=== PATIENT | female | born 1970 | race Asian ===

== ENCOUNTER 2024-08-29 20:36 | Emergency (ER) | payer MEDICAID ==
[~2024-08-29] VITALS: Ht 162.6 cm; Wt 51.0 kg
[2024-08-29 22:18] LABS: BASOPHILS % (AUTO) 0.8 % (0.0-2.0); EOSINOPHILS % (AUTO) 3.3 % (1.0-6.0); HEMATOCRIT 28.7 % (36-46); HEMOGLOBIN 8.9 g/dL (12.0-16.0); LYMPHOCYTES # (AUTO) 0.8 K/uL (1.0-4.8); LYMPHOCYTES % (AUTO) 16.5 % (22.0-44.0); MEAN CORPUSCULAR HEMOGLOBIN 30.1 pg (26.0-34.0); MEAN CORPUSCULAR HGB CONC 31.1 G/dL (31.0-37.0); MEAN CORPUSCULAR VOLUME 97 fL (80-100); MONOCYTES # (AUTO) 0.3 K/uL (0.1-1.0); MONOCYTES % (AUTO) 6.3 % (2.0-9.0); NEUTROPHILS # (AUTO) 3.4 K/uL (1.8-7.7); NEUTROPHILS % (AUTO) 73.1 % (40.0-70.0); PLATELET COUNT (AUTO) 182 K/uL (150-450); RED BLOOD CELL COUNT(AUTO) 2.96 MIL/uL (4.00-5.20); RED CELL DISTRIBUTION WIDTH 22.7 % (11.5-14.5); WHITE BLOOD COUNT (AUTO) 4.6 K/uL (4.5-11.0)
[2024-08-29 22:27] LABS: ANION GAP 8 mmol/L (8-16); CALCIUM, TOTAL 7.7 mg/dL (8.8-10.5); CARBON DIOXIDE 25 mmol/L (22-29); CHLORIDE 110 mmol/L (98-107); CREATININE 0.59 mg/dL (0.60-1.30); GLOMERULAR FILTR. RATE CALC > 60 mL/min (>60); GLUCOSE,RANDOM 111 mg/dL (70-110); POTASSIUM 3.6 mmol/L (3.5-5.1); SODIUM SERUM 143 mmol/L (136-145); UREA NITROGEN, BLOOD 17 mg/dL (7-18)
[2024-08-29 22:37] LABS: ALANINE AMINOTRANSFERASE 18 U/L (12-78); ALBUMIN 2.9 g/dL (3.4-5.0); ALKALINE PHOSPHATASE 60 U/L (46-116); ASPARTATE AMINOTRANSFERASE 14 U/L (15-37); BILIRUBIN,TOTAL 0.2 mg/dL (0.1-1.0); TOTAL PROTEIN, SERUM 5.6 g/dL (6.4-8.2); TROPONIN I-HIGH SENSITIVITY 4 ng/L (<51)
[2024-08-29 22:58] LABS: RBC MORPHOLOGY COMMENT ABNORMAL RBC MORPH
[2024-08-29] MEDS: TRANEXAMIC ACID IV ONE (23:30)
[2024-08-29] MEDS: WATER IV ONE (23:30)
[2024-08-29] MEDS: DEXTROSE 5% IV ONE (23:30)
[2024-08-30 01:00] VITALS: TEMP 97.3
[2024-08-30 03:12] VITALS: BP 119/65; PULSE 65; RESP 16; O2SAT 100
== END 2024-08-30 05:23 | disposition home or self-care (01) ==
LOC: EMS 20:36
DX: N93.9 Abnormal uterine and vaginal bleeding, unspecified (principal); Z59.01 Sheltered homelessness
CPT/HCPCS: 99284; 96365; 80048; 80076; 84484; 85025; 36415; 93005; J7060; J3490

== ENCOUNTER 2025-05-21 04:47 | Emergency (ER) | payer MEDICAID ==
[~2025-05-21] VITALS: Ht 157.5 cm; Wt 52.3 kg
[2025-05-21 05:02] VITALS: TEMP 97.5
[2025-05-21 05:28] LABS: PLATELET COUNT (AUTO) 160 K/uL (150-450); RED BLOOD CELL COUNT(AUTO) 3.93 MIL/uL (4.00-5.20); RED CELL DISTRIBUTION WIDTH 17.2 % (11.5-14.5); WHITE BLOOD COUNT (AUTO) 5.1 K/uL (4.5-11.0)
[2025-05-21 05:36] LABS: CALCIUM, TOTAL 8.1 mg/dL (8.8-10.5); CREATININE 0.44 mg/dL (0.60-1.30); GLOMERULAR FILTR. RATE CALC > 60 mL/min (>60); GLUCOSE,RANDOM 100 mg/dL (70-110); SODIUM SERUM 139 mmol/L (136-145); UREA NITROGEN, BLOOD 10 mg/dL (7-18)
[2025-05-21] MEDS ORDERED: LORazepam 2 MG/ML VIAL ONE (07:35)
[2025-05-21] MEDS: TRANEXAMIC ACID 1,000 MG in DEXTROSE 5%-WATER 50 ML IV ONE (08:45)
[2025-05-21] MEDS ORDERED: CEPHALEXIN MONOHYDRATE 500 MG CAPSULE PO ONE (08:45)
[2025-05-21] MEDS: LORazepam 2 MG/ML VIAL IM ONE ×2 (08:46→08:47)
[2025-05-21] MEDS: ZIPRASIDONE MESYLATE 20 MG/VIAL IM ONE (08:47)
[2025-05-21] MEDS: CefTRIAXone 1 GM/DEXTROSE 50 ML IV ONE (09:56)
[2025-05-21 10:13] LABS: APPEARANCE,URINE CLEAR (CLEAR); GLUCOSE, URINE (UA) NEGATIVE (NEGATIVE); LEUKOCYTE ESTERASE ,URINE NEGATIVE (NEGATIVE); NITRATE,URINE NEGATIVE (NEGATIVE); OCCULT BLOOD,URINE NEGATIVE (NEGATIVE); SPECIFIC GRAVITIY, URINE 1.008 (1.003-1.030)
[2025-05-21 10:15] LABS: SQUAMOUS EPITHELIAL CELL,UR Rare /LPF (None Seen)
[2025-05-21 12:15] VITALS: BP 90/55; PULSE 67; RESP 17; O2SAT 96
[2025-05-24] MEDS ORDERED: SERT-158 PO (13:29)
[2025-05-24] MEDS ORDERED: MEDR5TAB5 PO (14:35)
[2025-05-24] MEDS ORDERED: FERR-82 PO (14:36)
== END 2025-05-21 12:38 | disposition short-term general hospital (02) ==
LOC: EMS 04:47
DX: R45.851 Suicidal ideations (principal); D25.9 Leiomyoma of uterus, unspecified; R10.20 Pelvic and perineal pain unspecified side; Z86.018 Personal history of other benign neoplasm; Z88.6 Allergy status to analgesic agent
CPT/HCPCS: 99291; 96365; 76856; 96375; 80048; 81001; 84702; 85025; 36415; 51701; 96372; J0696; J1200; J1630; J2060; J3486; J7060; J3490; J1410